=== PATIENT | male | born 1995 | race Caucasian/White ===

== ENCOUNTER 2017-10-13 20:54 | Emergency (ER) | payer MEDICAID ==
[2017-10-13 21:00] VITALS: BMI 20.7
[2017-10-13 21:03] VITALS: BP 105/55; PULSE 99; RESP 16; TEMP 98.4; O2SAT 98
== END 2017-10-14 01:08 | disposition left against medical advice (07) ==
LOC: H.ER 20:54
DX: Z02.89 Encounter for other administrative examinations (principal)